=== PATIENT | female | born 1990 | race Caucasian/White ===

== ENCOUNTER 2022-09-29 11:35 | Outpatient (CLI) | payer OTHER, SELFPAY ==
[2022-09-29] VITALS (47 sets, daily range): BP systolic 93–113; BP diastolic 51–58; PULSE 112–141; TEMP 37.7–40.8; O2SAT 90–100; BMI 36.1
--- NOTE | 2022-09-29 11:59 | HP.PCM.OB_ITS ---
HPI - General General Date of Service: 09/29/22 Chief Complaint: Increased abdominal/pelvic pressure and severe headache. HPI Narrative ALEXIA MELISSA, is a 32 F who presents by squad with the above. She is and currently 26 wks by early ultrasound ( JASEN 01/07/23). States she started feeling unwell yesterday with low back pain. Denies LOF or vaginal bleeding and FM have been present. PFSH PFSH Medical History no medical history no medical history Home Medications [id number] 1 mg tablet 1 tab PO DAILY 09/29/22 [History Last Taken 09/28/22 22:00 1 tab] Allergy/AdvReac Type Severity Reaction Status Date / Time No Known Allergies Allergy Verified 09/29/22 11:52 Family History no significant family his no significant family history Surgical History no surgical history no surgical history Social History (Updated 09/29/22 @ 12:[address] Ernestine Pham MD) household members: spouse, family and children housing: house History 9 Elective abortions 0 Hx Para 7 Spontaneous abortions 0 Hx # Term Pregnancies 7 Ectopic pregnancies 0 Hx # Pregnancies 0 Multiple births 0 # of living children 7 Addt'l History: Has been seeing labelling machine operator for care. First delivery only in hospital. Rest at [facility]. History of one macrosomic infant 10lb 13 oz., All recent deliveries uncomlicated. NST FHR Rate Baby A Baseline: 180 Variability:: Moderate Accelerations:: 10 x 10 Decelerations:: None NST Reactive:: Yes and Appropriate for gestational age FHR Category:: Category II Uterine Activity:: none Baseline tachycardia ROS ROS Narrative Had an emesis this am. Headache+. Hungry + Genitourinary Genitourinary: Reports urinary frequency Vital Signs Vital Signs Vital Signs: 09/29/22 11:52 09/29/22 11:52 09/29/22 11:57 Pulse Rate 125 H 129 H Pulse Ox 95 09/29/22 11:57 Pulse Rate Pulse Ox 96 Weight Weight: 191 lb Body Mass Index (BMI) 36.1 Physical Exam Const alert, oriented x3 and well nourished Constitutional Narrative: looks very uncomfortable, anxious, shaking head General Appearance: cooperative Orientation / Consciousness: awake Exam Limitations: no limitations Nutritional Appearance: overweight HEENT normocephalic Eyes PERRL and EOMs intact bilaterally Neck full ROM Lymph Lymphatic: no lymphadenopathy noted Resp normal respiratory effort and clear to auscultation bilaterally Effort and Inspection: able to speak in complete sentences Cardio regular rate, regular rhythm and no murmurs Cardio Narrative: tachycardia GI normal to inspection, nondistended, normoactive bowel sounds, soft to palpation, non-tender and hepatosplenomegaly Inspection: other Other Details: gravid Narrative: Pelvic: cervix closed thick, high, medium consistency. Bladder / Kidney Exam: no CVA tenderness Manual OB Exam: not dilated nor effaced and station -3 Back/Spine no CVA tenderness Extremity normal to inspection, no calf tenderness and no pedal edema Skin no rashes or lesions noted Psych mental status grossly normal Labs Labs Labs: No Data to Display Assessment & Plan (1) 26 weeks gestation of : COMMENT: No evidence of active labor (2) Low grade fever: (3) Malaise: (4) Low back pain: (5) Tachycardia: COMMENT: 2-5 all likely related to viral syndrome or UTI. Evaluating for both (6) tachycardia: COMMENT: Related to low grade fever. PLAN: Pain relief, hydration while awaiting results and more definitive treatment.
[2022-09-29] MEDS: Dextrose 5%-Lactated Ringers 1,000 ML 125 ML IV (12:00)
[2022-09-29] MEDS: Metoclopramide 10 MG/2 ML Vial IV (12:24)
[2022-09-29] MEDS: DiphenhydrAMINE 50 MG/ML Syringe 12.5 MG IV (12:26)
[2022-09-29] MEDS: Nalbuphine 10 MG/ML Ampul IV (12:27)
[2022-09-29 12:36] LABS: Bacteria 0 SEEN /hpf (None Seen); Mucous, Urine 0 SEEN /hpf (<or=2+); Red Blood Cells-Urine 0 SEEN /hpf (0-5); Squamous Epithelial Cells - UA 0 SEEN /hpf (5-10); White Blood Cells 0 SEEN /hpf (0-5)
[2022-09-29 12:38] LABS: Absolute Lymphocyte Count 0.49 X10^3/uL (0.83-4.51); Absolute Neutrophil Count 9.4 X10^3/uL (2.0-7.7); Basophil# 0.03 X10^3/uL; Basophil% 0.3 % (0-1); Hematocrit 34.3 % (37-47); Hemoglobin 11.9 g/dL (12.0-15.0); Lymphocyte # 0.49 X10^3/ul (0.83-4.51); Lymphocyte % 4.7 % (19-41); Mean Corp Hgb Conc 34.7 g/dL (32-36); Mean Corpuscular Hgb 30.9 pg (27.0-32.0); Mean Corpuscular Volume 89.1 fL (81-99); Mean Platelet Vol. 10.2 fl (6.2-12.0); Monocyte# 0.37 X10^3/uL; Monocyte% 3.6 % (0-10); NRBC Flagged by Analyzer 0 % (0-5); Neutrophil # 9.39 X10^3/uL (2.7-7.7); Neutrophil % 90.7 % (47-70); POSITIVE DIFFERENTIAL YES; Platelet Count 180 K/mm3 (150-450); RBC Distribution Width CV 12.7 % (11.6-14.6); RBC Distribution Width SD 41.8 fl (35.1-43.9); Red Blood Count 3.85 M/mm3 (4.2-5.4); White Blood Count 10.4 K/mm3 (4.4-11.0)
[2022-09-29 12:38] LABS: Color, Urine Yellow (Yellow); Glucose, Dipstick Normal (Normal); Ketone-Dipstick 15 mg/dl (Negative); Leukocyte Esterase-Dipstick 25 /ul (Negative); Nitrite-Dipstick Positive (Negative); Occult Blood-Urine 25 /ul (Negative); Protein-Dipstick Negative (Negative); Specific Gravity, Urine 1.005 (1.002-1.030); Urine Bilirubin Dipstick Negative (Negative); Urine Clarity Clear (Clear); Urine Urobilinogen Normal (Normal)
[2022-09-29] MEDS: Acetaminophen 500 MG Tablet 1000 MG PO (12:40)
[2022-09-29 12:43] LABS: Differential Indicated SCAN CRITERIA MET
--- NOTE | 2022-09-29 12:43 | NURSING ---
IV present on arrival via squad.
[2022-09-29 13:14] LABS: ALB/GLOB Ratio 0.6 RATIO (0.9-2.4); AST(SGOT) 36 U/L (15-37); Alanine Aminotransfer ALT/SGPT 38 U/L (13-56); Albumin, Serum 2.3 g/dL (3.2-5.0); Alkaline Phosphatase 80 U/L (45-117); Anion Gap 10 (5-15); BUN 9 mg/dL (7-18); BUN/Creat Ratio 18.1 RATIO (10-20); Calcium,Total 7.7 mg/dL (8.5-10.1); Chloride 99 mmol/L (98-107); EST Glomerular Filtration Rate 151 mL/min (>60); Est Glom Filt Rate - Afr Amer 183 mL/min (>60); Estimated Creatinine Clearance 119.63 ml/min; Globulin 3.8 g/dL (2.2-4.2); Glucose 101 mg/dL (74-106); Protein, Total 6.1 g/dL (6.4-8.2); Sodium Level 130 mmol/L (136-145); Thyroid Stim Hormone (TSH) 1.65 uIU/mL (0.358-3.74)
--- NOTE | 2022-09-29 14:20 | PCM.PN.BLA ---
Progress Note Paged at 1:26 pm that patient had spiked a temperature to 104 / 103 with FHR in 190's now and loss of variability. Labs now available - : WBC left shift, deranged electrolytes and UA unimpressive. Urine culture and blood cultures ordered with serum Lactate, and call made to hospitalist to onsult. On further thought, fever might precipitate PTL and probably best to have the patient in a facility better suited to a 26 weeker. Came in to see patient, explained to her and why I think they are best transferred, and they are agreeable. Physical Exam Narrative At this time, patient has broken into a sweat with temp lower. Patient looks flushed and diaphoretic in bed. Alert and oriented. FHR down to 150-0s baseline with variability returning. Assessment & Plan Assessment/Plan (1) Hypokalemia: (2) Hyponatremia: (3) Hypocalcemia: PLAN: Plan Will discuss transfer with perinatology.
[2022-09-29 14:30] LABS: Lactic Acid 1.5 mmol/L (0.4-1.9)
[2022-09-29] MEDS: LACTATED RINGERS 500 ML 999 ML IV (14:30)
[2022-09-29] MEDS: 0.9% Normal Saline 1,000 ML 999 ML IV (14:52)
[2022-09-29] MEDS: Ceftriaxone 1 GM/50 ML BAG IV (14:52)
--- NOTE | 2022-09-30 14:48 | PCM.DC.SUM ---
Providers Primary Care Physician: No Primary Care Phys Consultations 09/29/22 13:45 Consult: Hospitalist Routine Consulting Provider: Marcin Godinez Reason for Consult: pt fever EMERGENT Consult: No MD Notified: Yes Date Notified: 09/29/22 Time Notified: 13:46 Method of Notification: Verbal Reason For Visit: ABDOMINAL PAINS Diagnosis Discharge Diagnosis (1) Hypokalemia: Status: Acute Code(s): E87.6 - Hypokalemia (2) Hyponatremia: Status: Acute Code(s): E87.1 - Hypo-osmolality and hyponatremia (3) Hypocalcemia: Status: Acute Code(s): E83.51 - Hypocalcemia (4) 26 weeks gestation of : Status: Acute Code(s): Z3A.26 - 26 weeks gestation of (5) Tachycardia: Status: Acute Code(s): R00.0 - Tachycardia, unspecified (6) tachycardia: Status: Acute (7) Fever: Status: Acute Code(s): R50.9 - Fever, unspecified Plan Will discuss transfer with perinatology. Medications at Discharge Home Medications [id number] 1 mg tablet 1 tab PO DAILY 09/29/22 Hospital Course Summary of Care Provided Minutes Spent on Discharge: 60 Hospital Course: Patient was admitted with viral type syndrome with maternal and tachycardia. Her clinical status deteriorated rapidly and I came in to evaluate, manage hydration, fever, tachycardia ( was dropping BP's) and arrange transfer to Tertiary center given unknown source of septic picture. Transfer achieved by ambulance. Weight / BMI Weight Weight: 191 lb Body Mass Index (BMI) 36.1 ABG / Lab / Microbiology Data Result Diagrams: 09/29/22 12:30 09/29/22 12:30 Microbiology: Microbiology 09/29/22 12:05 Urine, Catheterized Urine Culture - Preliminary Culture exhibits no growth. 09/29/22 14:02 Blood Culture (Wb) - Right Hand Bacteria Detection (PCR) - Final Strep not Strep pneumo 09/29/22 14:02 Blood Culture (Wb) - Right Hand Blood Culture - Preliminary 09/29/22 13:56 Blood Culture (Wb) - Anticubital Right Blood Culture - Preliminary 09/29/22 12:30 Nasal Secretion SARS-CoV-2 & FLU Antigen (Rapid) - Final Meaningful Use Info Meaningful Use Diagnoses (Choose all that apply): None applicable Discharge Plan Admission Reason For Visit: ABDOMINAL PAINS Attending Provider: Ernestine Pham Primary Care Provider: Care Physician,No Primary Discharge Orders/Prescriptions Prescriptions: No Action 1 mg Tablet 1 tab PO DAILY Referrals / Follow Up: Care Physician,No Primary [Primary Care Provider] - Disposition Patient Disposition: Acute Care Hospital
== END 2022-09-29 15:45 | disposition short-term general hospital (02) ==
LOC: WPOUT 11:41 → WP 11:51
PROVIDERS: Visit Provider Obstetrics & Gynecology Gynecology
DX: O99.212 Obesity complicating pregnancy, second trimester (principal); E87.1 Hypo-osmolality and hyponatremia; E83.51 Hypocalcemia; E87.6 Hypokalemia; R10.2 Pelvic and perineal pain; O99.891 Other specified diseases and conditions complicating pregnancy; R51.9 Headache, unspecified; M54.9 Dorsalgia, unspecified; R45.0 Nervousness; Z3A.26 26 weeks gestation of pregnancy; R50.9 Fever, unspecified; O26.819 Pregnancy related exhaustion and fatigue, unspecified trimester
CPT/HCPCS: 36415; 59025; 59050; 76815; 80053; 81001; 83036; 83605; 84443; 85025; 87040; 87077; 87086; 87149; 87186; 87428; J7030; J7120

== ENCOUNTER 2022-10-12 01:03 | Emergency (ER) | payer OTHER, SELFPAY ==
[2022-10-12] MEDS: 0.9% Normal Saline 1,000 ML 999 ML IV ×2 (01:03→02:10)
[2022-10-12 01:04] VITALS: TEMP 37.3; BMI 36.6
--- NOTE | 2022-10-12 01:27 | EKG12_ITS ---
Test Reason : SOB Blood Pressure : / mmHG Vent. Rate : 108 BPM Atrial Rate : 108 BPM P-R Int : 128 ms QRS Dur : 084 ms QT Int : 342 ms P-R-T Axes : 064 051 066 degrees QTc Int : 458 ms Sinus tachycardia Otherwise normal ECG Confirmed by OBI COX, BRIGITTE ([id number]), map editor ZACARIAS DESIR ([id number]) on 10/14/2022 11:14:09 AM Referred By: Confirmed By:BRIGITTE CROCKER MD
[2022-10-12 02:18] LABS: Absolute Lymphocyte Count 0.58 X10^3/uL (0.83-4.51); Absolute Neutrophil Count 9.2 X10^3/uL (2.0-7.7); Basophil# 0.04 X10^3/uL; Basophil% 0.4 % (0-1); Eosinophil# 0.05 X10^3/uL; Eosinophils% 0.5 % (0-5); Hematocrit 33.1 % (37-47); Hemoglobin 10.7 g/dL (12.0-15.0); Lymphocyte # 0.58 X10^3/ul (0.83-4.51); Lymphocyte % 5.6 % (19-41); Mean Corp Hgb Conc 32.3 g/dL (32-36); Mean Corpuscular Hgb 29.9 pg (27.0-32.0); Mean Corpuscular Volume 92.5 fL (81-99); Mean Platelet Vol. 9.7 fl (6.2-12.0); Monocyte# 0.44 X10^3/uL; Monocyte% 4.2 % (0-10); NRBC Flagged by Analyzer 0 % (0-5); Neutrophil % 88.3 % (47-70); POSITIVE DIFFERENTIAL YES; Platelet Count 325 K/mm3 (150-450); RBC Distribution Width CV 13.3 % (11.6-14.6); RBC Distribution Width SD 42.8 fl (35.1-43.9); Red Blood Count 3.58 M/mm3 (4.2-5.4); White Blood Count 10.4 K/mm3 (4.4-11.0)
[2022-10-12 02:19] LABS: Differential Indicated SCAN CRITERIA MET
--- NOTE | 2022-10-12 02:20 | RAD_ITS ---
INDICATION: dyspnea EXAMINATION/TECHNIQUE: X-RAY - XR Chest 1 View COMPARISON: None. FINDINGS: LINES/DEVICES: None. LUNGS: No consolidation, edema or effusion. No pneumothorax. MEDIASTINUM AND CARDIOVASCULAR STRUCTURES: Cardiac silhouette not enlarged. Central airways and mediastinal contour are unremarkable. BONES AND SOFT TISSUES: Unremarkable. RAD/Chest 1 View (Portable) IMPRESSION: No acute cardiopulmonary disease. Electronically Signed: Simon Lyons MD at 2:43 EST ,
[2022-10-12 02:26] LABS: Lactic Acid 0.8 mmol/L (0.4-1.9)
[2022-10-12 02:30] LABS: Differential Comment SCANNED
[2022-10-12 02:34] LABS: AST(SGOT) 84 U/L (15-37); Alanine Aminotransfer ALT/SGPT 93 U/L (13-56); Albumin, Serum 3.4 g/dL (3.2-5.0); Alkaline Phosphatase 126 U/L (45-117); Anion Gap 14 (5-15); BUN 15 mg/dL (7-18); BUN/Creat Ratio 27.6 RATIO (10-20); Bilirubin, Direct 0.85 mg/dL (0.00-0.30); Calcium,Total 9.1 mg/dL (8.5-10.1); Chloride 101 mmol/L (98-107); Creatinine, Serum 0.54 mg/dL (0.55-1.02); EST Glomerular Filtration Rate 136 mL/min (>60); Est Glom Filt Rate - Afr Amer 165 mL/min (>60); Estimated Creatinine Clearance 110.77 ml/min; Glucose 86 mg/dL (74-106); LDH 225 U/L (84-246); Magnesium 1.6 mg/dL (1.6-2.6); Potassium 3.5 mmol/L (3.5-5.1); Protein, Total 7.4 g/dL (6.4-8.2); Sodium Level 135 mmol/L (136-145)
[2022-10-12 02:37] LABS: D-Dimer Quantitative (DVT/PE) 5.71 FEU/ug/m (0.27-0.49)
[2022-10-12 02:44] VITALS: BP 104/58; PULSE 104; RESP 35; O2SAT 96
[2022-10-12 03:21] VITALS: BP 101/56; PULSE 101; RESP 34; O2SAT 95
[2022-10-12 03:24] VITALS: O2SAT 93
--- NOTE | 2022-10-12 04:10 | EDS_ITS ---
HPI History of Present Illness Chief Complaint: Shortness of Breath Narrative Narrative: Patient is a G8, P6 female with 1 spontaneous who is approximately 26 to 28 weeks . She was recently at [facility] and according to patient and she was there secondary to pneumonia with sepsis and ARDS. She spent approximately 2 weeks there and was discharged home on October 11 around 4:30 PM. Patient states that she was able to go to sleep but then awoke a few hours later feeling chilled with shortness of breath. They state they contacted the on-call nurse who advised him to come back to the hospital for repeat evaluation. The patient is Muslim and does not drive and cannot get a ride to [place] at this time so therefore presents to the ER in [place] by EMS PFSH PFS Home Medications [id number] 1 mg tablet 1 tab PO DAILY 09/29/22 [History Last Taken 09/28/22 22:00 1 tab] Allergy/AdvReac Type Severity Reaction Status Date / Time No Known Allergies Allergy Verified 10/12/22 01:10 Social History (Updated 09/29/22 @ 12:[address] Ernestine Pham MD) household members: spouse, family and children housing: house Smoking Status: Never smoker ROS ROS ED Constitutional Constitutional ED: Reports chills; Denies fever(s) ENT ENT ED: Denies sore throat Cardiovascular Cardiovascular: Reports racing heartbeat; Denies chest pain Respiratory/Chest Respiratory/Chest: Reports dyspnea; Denies cough Gastrointestinal Gastrointestinal: Denies abdominal pain, diarrhea, nausea or vomiting Genitourinary Genitourinary ED: Denies dysuria Musculoskeletal Musculoskeletal: Denies myalgias Integumentary Denies rash Neurologic Neurologic: Reports weakness; Denies headache(s) Hematologic/Lymphatic Hematologic/Lymphatic: Denies easy bleeding or easy bruising EXAM Physical Exam Const Vital Signs: 10/12/22 01:04 10/12/22 02:44 10/12/22 03:21 Temperature 99.1 F Temperature Source Temporal Pulse Rate 104 H 101 H Respiratory Rate 35 H 34 H Respiratory Effort Respiratory Depth Respiratory Pattern Blood Pressure 104/58 L 101/56 L Blood Pressure Mean 73 71 Pulse Ox 96 95 Oxygen Delivery Method Room Air Room Air 10/12/22 03:24 10/12/22 04:36 Temperature 98.9 F Temperature Source Pulse Rate 99 Respiratory Rate 27 H Respiratory Effort Short of Breath Respiratory Depth Normal Respiratory Pattern Tachypnea Blood Pressure 102/42 L Blood Pressure Mean 62 Pulse Ox 95 Oxygen Delivery Method Room Air Positive well nourished and well developed General Appearance ED: well developed HEENT Reports moist mucous membranes HEENT Narrative: No tongue or lip swelling no oral lesions no airway edema or compromise Eyes PERRL and EOMs intact bilaterally General Eye ED: Negative for pale conjunctiva Neck supple and no JVD Neck Narrative: No nuchal rigidity or meningeal signs present Chest Wall palpation of chest normal Resp clear to auscultation bilaterally Resp Narrative: Patient is tachypneic with a respiratory rate of approximately 30 with mild accessory muscle use but breath sounds overall clear to auscultation Cardio regular rhythm Rate: tachycardic and other Other Details: Tachycardic rate with regular rhythm. Radial pulses are plus 2 out of 4 bilaterally are equal and symmetric GI non-tender GI Narrative: Abdomen is gravid with fundus slightly smaller than reported gestational age. No voluntary guarding or rigidity no pulsatile mass or fluid wave Patient does have a drain in place in the right upper quadrant which is draining bile colored fluid and there is no soft tissue changes around the insertion site to suggest secondary infection Auscultation: normoactive bowel sounds Palpation: soft Extremity normal to inspection Extremity Narrative: No asymmetric edema no pitting edema negative Homans' sign bilaterally Neuro oriented x3 and CN's II-XII intact bilaterally Sensorium / Orientation: alert Psych Psych Narrative: Patient has a flat affect Skin no rashes or lesions noted MDM MDM MDM Narrative Medical decision making narrative: Patient arrived to the ER afebrile but was mildly tachycardic and tachypneic. Despite this breath sounds are clear and she is satting in the mid 90s on room air. Secondary to her tachypnea and tachycardia as well as recent hospital stay secondary to pneumonia I did elect to perform a basic work-up. Labs reveal stable H&H and no leukocytosis or lactic acidosis. Electrolytes and kidney function do not show any clinically significant changes either. Chest x-ray reveals no pneumonia or pleural effusion or pneumothorax. EKG displayed sinus tachycardia without dysrhythmia or ischemic changes. Patient was given 2 L of f luid and vitals remained roughly the same as upon arrival. Her D-dimer is elevated at 5.7 but patient has risk factors of recent hospitalization and surgery which could cause this to elevate or also cause a PE. [facility] was contacted as the patient had just been discharged from there not even 24 hours ago. I spoke with Dr. Sanderson who at this time does accept the patient to their facility for repeat and further evaluation. She recommends that I hold off on the CTA at this time based on her status and therefore that was not ordered at her ER stay. At this point there is concern for patient having developed a PE based on her risk factors with tachypnea and tachycardia however she is in distress but not hemodynamically unstable so therefore we will hold off on any interventions such as anticoagulation or tPA at this time. Also as there is no obvious signs of infection at this point antibiotics will be held as well. The plan of care was discussed with patient and family and they are agreeable to this and therefore will be sent to [facility] for further evaluation Lab Data Attestation: I reviewed the patient's lab results. Labs: Laboratory Results - last 24 hr 10/12/22 10/12/22 10/12/22 01:15 01:15 01:15 WBC 10.4 RBC 3.58 L Hgb 10.7 L Hct 33.1 L MCV 92.5 MCH 29.9 MCHC 32.3 RDW Std Deviation 42.8 RDW Coeff of Jian 13.3 Plt Count 325 MPV 9.7 Immature Gran % (Auto) 1.000 H Neut % (Auto) 88.3 H Lymph % (Auto) 5.6 L [place] % (Auto) 4.2 Eos % (Auto) 0.5 Baso % (Auto) 0.4 Absolute Neuts (auto) 9.2 H Absolute Lymphs (auto) 0.58 L Nucleated RBC % 0 Differential Comment SCANNED D-Dimer Quant (PE/DVT) 5.71 H* Sodium 135 L Potassium 3.5 Chloride 101 Carbon Dioxide 20.0 L Anion Gap 14 BUN 15 Creatinine 0.54 L Estim Creat Clear Calc 110.77 Est GFR (MDRD) Af Amer 165 Est GFR (MDRD) Non-Af 136 BUN/Creatinine Ratio 27.6 H Glucose 86 Lactic Acid Calcium 9.1 Magnesium 1.6 Total Bilirubin 1.50 H Direct Bilirubin 0.85 H AST 84 H ALT 93 H Alkaline Phosphatase 126 H Lactate Dehydrogenase 225 Total Protein 7.4 Albumin 3.4 Globulin 4.0 10/12/22 01:45 WBC RBC Hgb Hct MCV MCH MCHC RDW Std Deviation RDW Coeff of Jian Plt Count MPV Immature Gran % (Auto) Neut % (Auto) Lymph % (Auto) [place] % (Auto) Eos % (Auto) Baso % (Auto) Absolute Neuts (auto) Absolute Lymphs (auto) Nucleated RBC % Differential Comment D-Dimer Quant (PE/DVT) Sodium Potassium Chloride Carbon Dioxide Anion Gap BUN Creatinine Estim Creat Clear Calc Est GFR (MDRD) Af Amer Est GFR (MDRD) Non-Af BUN/Creatinine Ratio Glucose Lactic Acid 0.8 Calcium Magnesium Total Bilirubin Direct Bilirubin AST ALT Alkaline Phosphatase Lactate Dehydrogenase Total Protein Albumin Globulin Radiography Diagnostic Testing: Clinical Impression(s) from Imaging Studies Chest X-Ray 10/12/22 02:20 IMPRESSION: No acute cardiopulmonary disease. Electronically Signed: Simon Lyons MD at 2:43 EST , 1 view chest x-ray as interpreted by the emergency medicine physician reveals no acute infiltrate pneumothorax or pleural effusion Discharge Plan Triage Chief Complaint: Shortness of Breath ED Provider: Dalton Skelton Dx/Rx/DC Orders Clinical Impression: Tachypnea, Tachycardia, Malaise Prescriptions: No Action 1 mg Tablet 1 tab PO DAILY Primary Care Provider: Donlad Epstein Referrals: Donald Epstein DO [Primary Care Provider] - Disposition Disposition: Acute Care Hospital Discharge Location: [facility]
[2022-10-12 04:36] VITALS: BP 102/42; PULSE 99; RESP 27; TEMP 37.2; O2SAT 95
== END 2022-10-12 07:08 | disposition short-term general hospital (02) ==
PROVIDERS: Emergency Provider Emergency Medicine; PCP Family Medicine; Visit Provider Emergency Medicine
DX: R06.02 Shortness of breath (principal); R00.0 Tachycardia, unspecified; O26.892 Other specified pregnancy related conditions, second trimester; O26.20 Pregnancy care for patient with recurrent pregnancy loss, unspecified trimester; Z3A.00 Weeks of gestation of pregnancy not specified
CPT/HCPCS: 71045; 80048; 80076; 83605; 83615; 83735; 85025; 85379; 87040; 93005; 99285; J7030; A4216